=== PATIENT | male | born 1945 | race Caucasian/White ===

== ENCOUNTER 2022-05-25 22:19 | Emergency (ER) | payer BC, OTHER ==
[~2022-05-25] VITALS: Ht 182.9 cm; Wt 79.4 kg
--- NOTE | 2022-05-25 22:45 | NUR ---
BIBS. ABDOMINAL PAIN THEN STARTED TO HAVE BILAT LEG NUMBNESS X 45MIN SOLAR INSTALLATION TECHNICIAN. PATIENT ALERT AND ORIENTED X3. AMBULATORY WITH NON LABORED BREATHING IN BED 10 ON MONITOR AND POX AWAITING MD RYAN/.
[2022-05-25] MEDS ORDERED: MORPHINE SULFATE INJ 2 MG/ML DISP.SYRIN IV ONE (23:00)
[2022-05-25] MEDS ORDERED: ONDANSETRON HCL/PF 4 MG/2 ML VIAL IVP ONE (23:00)
[2022-05-25] MEDS ORDERED: MORPHINE SULFATE INJ 4 MG/ML DISP.SYRIN ONE (23:00)
[2022-05-25] MEDS ORDERED: ONDANSETRON HCL/PF 4 MG/2 ML VIAL ONE (23:00)
[2022-05-25] MEDS ORDERED: IV NS 0.9% 500 ML BAG IV ONE (23:00)
--- NOTE | 2022-05-25 23:08 | NUR ---
BLOOD AND CULTURES COLLECTED AND SENT TO LAB
--- NOTE | 2022-05-25 23:08 | NUR ---
IV LINE ESTABLISHED , LAC18G AND RAC18G
[2022-05-25] MEDS ORDERED: IOHEXOL-350 100 ML VIAL IV ONE (23:09)
[2022-05-25] MEDS ORDERED: CT SWABBABLE VALVE TRANS SET 1 EA INFUS.SET MC ONE (23:09)
[2022-05-25] MEDS ORDERED: IV NS 0.9% 250 ML IV ONE (23:09)
--- NOTE | 2022-05-25 23:11 | NUR ---
EMT AT BEDSIDE FOR EKG
[2022-05-25 23:21] LABS: BASOPHILS # (AUTO) 0.1 K/uL (0.0-0.2); EOSINOPHILS % (AUTO) 1.6 % (0.0-6.0); HEMATOCRIT 41 % (39-51); HEMOGLOBIN 13.5 g/dL (13.5-17.5); LYMPHOCYTES # (AUTO) 2.1 K/uL (0.8-4.8); LYMPHOCYTES % (AUTO) 29.7 % (20.0-44.0); MEAN CORPUSCULAR HGB CONC 33 g/dl (31.0-36.0); MEAN CORPUSCULAR VOLUME 97 fL (80-96); MONOCYTES # (AUTO) 0.3 K/uL (0.1-1.30); MONOCYTES % (AUTO) 4.7 % (2.0-12.0); NEUTROPHILS # (AUTO) 4.4 K/uL (1.8-8.9); PLATELET COUNT (AUTO) 116 K/uL (150-450); RED BLOOD CELL COUNT(AUTO) 4.25 MIL/uL (4.5-6.0)
[2022-05-25] MEDS ORDERED: LIDOCAINE 2% JEL UROJET 10 ML MM ONE (23:32)
[2022-05-25 23:38] LABS: CALCIUM, SERUM 8.4 mg/dL (8.5-10.1); CARBON DIOXIDE 21 mmol/L (21-32); CHLORIDE 103 mmol/L (98-107); CREATININE 2.4 mg/dL (0.6-1.3); GLUCOSE 313 mg/dL (74-106); POTASSIUM 3.4 mmol/L (3.5-5.1); SODIUM SERUM 142 mmol/L (136-145); UREA NITROGEN, BLOOD 33 mg/dL (7-18)
--- NOTE | 2022-05-25 23:39 | NUR ---
URINE COLLECTED AND SENT TO LAB
--- NOTE | 2022-05-25 23:39 | NUR ---
COVID SWAB DONE AND SENT TO LAB
[2022-05-25 23:46] LABS: ALANINE AMINOTRANSFERASE 86 U/L (12-78); ALBUMIN 2.6 g/dL (3.4-5.0); ALKALINE PHOSPHATASE 106 U/L (46-116); ASPARTATE AMINOTRANSFERASE 121 U/L (15-37); BILIRUBIN,DIRECT 0.2 mg/dL (0.0-0.2); BILIRUBIN,TOTAL 0.5 mg/dL (0.2-1.0); LIPASE 476 U/L (73-393); TOTAL PROTEIN, SERUM 7.1 g/dL (6.4-8.2)
[2022-05-25 23:52] LABS: BILIRUBIN,URINE NEGATIVE (NEGATIVE); COLOR,URINE YELLOW (YELLOW); LEUKOCYTE ESTERASE ,URINE NEGATIVE (NEGATIVE); NITRITE, URINE NEGATIVE (NEGATIVE); PROTEIN,URINE >=300 mg/dl (NEGATIVE); UGLUCOSE NEGATIVE (NEGATIVE); UROBILINOGEN,URINE 0.2 EU/dL (0.2)
[2022-05-26] MEDS ORDERED: ONDANSETRON HCL/PF 4 MG/2 ML VIAL ONE (00:18)
[2022-05-26] MEDS ORDERED: ONDANSETRON HCL/PF 4 MG/2 ML VIAL IV ONE (00:30)
--- NOTE | 2022-05-26 00:40 | NUR ---
[facility] CALLED FOR HIGHER LEVEL OF CARE. [facility] FA[facility].
--- NOTE | 2022-05-26 00:46 | NUR ---
[facility] CALLED FOR HIGHER LEVEL OF CARE. [facility] FA[facility].
--- NOTE | 2022-05-26 00:47 | NUR ---
DR GUAJARDO PAGED PER DR ZIEGLER. SPOKE WITH FIELD SERVICES ANALYST DR POOLE.
--- NOTE | 2022-05-26 00:54 | NUR ---
[facility] CALLED. [facility] FAX[facility].
--- NOTE | 2022-05-26 00:59 | NUR ---
[facility] CALLED FOR HIGHER LEVEL OF CARE, NO BED CAPACITY.
--- NOTE | 2022-05-26 01:01 | NUR ---
CALL BACK FROM [facility]. UNABLE TO ACCEPT PT.
--- NOTE | 2022-05-26 01:08 | NUR ---
CALL BACK FROM [facility]. UNABLE CT SURGERY UNABLE TO ACCEPT PT.
--- NOTE | 2022-05-26 01:17 | NUR ---
[facility] CALLED FOR HIGHER LEVEL OF CARE.
--- NOTE | 2022-05-26 01:20 | NUR ---
PATIENT ON CONFERENCE CALL WITH DR. CABELLO/[facility] CARDIOTHORACIC SURGEON AND DR. ZIEGLER.
--- NOTE | 2022-05-26 01:30 | NUR ---
PATIENT STATES HE HAS NO FAMILY TO CONTACT, HOWEVER HAS A FRIEND THAT HE "WILL TRY TO CONTACT."
--- NOTE | 2022-05-26 01:52 | NUR ---
PATIENT INDECISIVE ABOUT WEATHER HE SHOULD UNDERGO SURGERY OR BE ADMITTED TO THE HOSPITAL, STATES HE "NEEDS MORE TIME TO THINK ABOUT IT" MD DAVIS
[2022-05-26] MEDS ORDERED: ACETAMINOPHEN 325 MG TABLET PO ONE (02:30)
--- NOTE | 2022-05-26 02:31 | NUR ---
FOLLOWING UP: PATIENT STILL UNSURE IF HE WANTS TO PROCEED WITH HAVING THE SUGURY. PATIENT IS ANXIOUS AND "NEEDS MORE TIME TO THINK ABOUT IT".
[2022-05-26] MEDS ORDERED: ACETAMINOPHEN 325 MG TABLET ONE (02:33)
[2022-05-26 02:37] LABS: BACTERIA,URINE Rare /HPF (None Seen); SQUAMOUS EPITHELIAL CELL,UR Few /HPF (None Seen); WBC,URINE 0-2 /HPF (0-3)
--- NOTE | 2022-05-26 02:58 | NUR ---
PATIENT IN BED, DENIES ANY DISCOMFORT AT THIS TIME. WILL CONTINUE TO MONITOR.
--- NOTE | 2022-05-26 03:25 | NUR ---
PATIENT EXPRESSED THAT HE WOULD NOT LIKE TO BE INTUBATED WHEN THE TIME COMES AND WISHES "TO PEACEFULLY" DR. ZIEGLER AT BEDSIDE WHEN PATIENT REQUESTED FOR THIS DIRECTIVE.
--- NOTE | 2022-05-26 03:49 | NUR ---
PT COMPLAINING ABOUT THE NUMBNESS IN LEGS, BREATHING BECOMING TACHYPNEIC AT 24 MD MADE AWARE.
--- NOTE | 2022-05-26 04:04 | NUR ---
PATIENT NO LONGER VERBALLY RESPONDING, O2 SATURATION AT 91, BP TRENDING DOWN. MD AWARE.
[2022-05-26 04:05] VITALS: BP 69/43
--- NOTE | 2022-05-26 04:28 | NUR ---
PATIENT , CALLED BY MD ZIEGLER.
--- NOTE | 2022-05-26 04:31 | NUR ---
NURSING WHEAT SHIPPER NOTIFIED OF PATIENTS .
--- NOTE | 2022-05-26 04:38 | NUR ---
PER [facility] BODY CAN BE RELEASED CASE # [id number]
--- NOTE | 2022-05-26 04:49 | NUR ---
[facility] . [place] WILL BE CORONERS CASE. CC#[id number]
--- NOTE | 2022-05-26 06:20 | NUR ---
PATIENT BODY BEING TRANSFERRED TO THE [facility] [place]
== END 2022-05-26 06:21 ==
LOC: ER 22:23
DX: I71.01 Dissection of thoracic aorta (principal); I31.3 Pericardial effusion (noninflammatory); Z66 Do not resuscitate; Z20.822 Contact with and (suspected) exposure to COVID-19
CPT/HCPCS: 99291; 74174; 96374; 71275; 96375; 87426; 99292; 93005; 85025; 80048; 83690; 80076; 81001; 36415; 84484; 87081; 96376; J3490; J2270; J2405 ×2; J7050; J7040; Q9967; C9803